=== PATIENT | female | born 1950 | race Hispanic/Latino ===

== ENCOUNTER 2018-02-21 08:48 | Day surgery (SDC) | payer MEDICARE, OTHER ==
[2018-02-21] MEDS ORDERED: ATROPINE 0.1% (CARDIAC) ONE (10:32)
[2018-02-21] MEDS ORDERED: ADRENALIN ONE (10:32)
[2018-02-21] MEDS ORDERED: NITROSTAT SL ONE (10:32)
[2018-02-21] MEDS ORDERED: XYLOCAINE CARDIAC IV ONE (10:32)
[2018-02-21] MEDS ORDERED: NACL 0.9% 500 ML 500 ML IV SCH (11:00)
--- NOTE | 2018-02-21 11:13 | Short Stay Summary ---
Short Stay Documentation Date of service: 02/21/18 - History H&P: obtained from office - Allergies and Medications Current Medications: Allergies clarithromycin [From Biaxin] Allergy (Verified 02/21/18 10:42) Hives, red in face dexamethasone Allergy (Verified 02/21/18 10:42) HIVES,RED IN FACE doxycycline Allergy (Verified 02/21/18 10:42) Hives, red in face hydromorphone HCl [From Dilaudid] Allergy (Verified 02/21/18 10:42) HIVES, RED IN FACE levofloxacin [From Levaquin] Allergy (Verified 02/21/18 10:42) Hives, RED IN FACE prednisone Allergy (Verified 02/21/18 10:42) Itching promethazine HCl [From Phenergan] Allergy (Verified 02/21/18 10:42) HIVES, RED IN FACE tramadol Allergy (Verified 02/21/18 10:42) Dizziness AMIODIPHINE BESYLATE Allergy (Uncoded 04/21/16 07:08) HIVES,RED IN FACE PRETASONE Allergy (Uncoded 04/21/16 07:08) Hives, RED IN FACE SODIUM PENATHOL Allergy (Uncoded 04/21/16 07:08) Hives, RED IN FACE Active Medications Sodium Chloride (Nacl 0.9% 500 Ml) 500 mls @ 50 mls/hr IV DIRECT AYAH - Physical exam General appearance: no acute distress Integumentary: no rash HEENT: Atraumatic Lungs: Clear to auscultation Breasts: deferred Heart: Regular rate Gastrointestinal: normal Female Genitourinary: deferred Rectal Exam: deferred Extremities: no ischemia Neurological: Normal gait - Brief post op/procedure progress note Date of procedure: 02/21/18 Pre-op diagnosis: Syncope Post-op diagnosis: same Procedure: TTT Anesthesia: none Findings: See report Surgeon: GARRY MONCADA Estimated blood loss: none Pathology: none Condition: stable - Hospital course Hospital course: Uneventful - Disposition Condition at discharge: Good Disposition: DC-01 TO HOME OR SELFCARE Short Stay Discharge Plan Activity: advance as tolerated Weight Bearing Status: Weight Bear as Tolerated Diet: low fat, low cholesterol, low salt Follow up with: JUAN ANTONIO VINCENT JR, MD [Primary Care Provider] - 7 Days
[2018-02-21 12:20] VITALS: BP 115/62
--- NOTE | 2018-02-21 13:52 | Procedure Note ---
TILT TABLE TEST INDICATION: Syncope. ORDERING PHYSICIAN: Maynor Cruz MD PROCEDURE PERFORMED: Tilt table test. DESCRIPTION OF PROCEDURE: After obtaining written consent, the patient was brought to the labor relations or personnel negotiator area. The patient was secured on the tilt table test. The blood pressure prior to tilting was 137/84 with a heart rate of 74, sinus rhythm. The patient was tilted to 85 degrees from horizontal. The blood pressure after tilting was 142/90 with a heart rate of 93 beats per minute. The patient was kept in the upright position for 10 minutes. At the end of the 10 minutes, her blood pressure was 143/93 with a heart rate of 100 beats per minute. The patient was then given 0.4 mg of sublingual nitroglycerin. Six minutes post-nitroglycerin administration. The patient started complaining of dizziness, sweatiness and nausea. Her heart rate started to decrease and she developed junctional bradycardia with a heart rate in the low to mid 50s. The patient did lose consciousness. The patient was tilted back to horizontal. The blood pressure after tilting was 88/66. The patient was given IV fluids, her blood pressure recovered eventually to 114/80 and her heart rate recovered to 85 beats per minute, sinus rhythm. IMPRESSION: This is a positive tilt table test with evidence of a significant cardioinhibitory response as well as a vasodepressor response to nitroglycerin. RECOMMENDATION: The patient will be recommended for behavioral changes and the initiation of a beta magaly. The patient will also be recommended to discontinuation of old diuretics. JOB# [id number] RITESH/STEPHANIE
== END 2018-02-21 12:20 | disposition home or self-care (01) ==
LOC: CATHLABREC 08:48
PROVIDERS: ATTEND Internal Medicine
DX: Z88.8 Allergy status to other drugs, medicaments and biological substances (principal); R55 Syncope and collapse; M19.90 Unspecified osteoarthritis, unspecified site; J45.909 Unspecified asthma, uncomplicated; K21.9 Gastro-esophageal reflux disease without esophagitis; I10 Essential (primary) hypertension; Z82.49 Family history of ischemic heart disease and other diseases of the circulatory system
CPT/HCPCS: 93005; 93010; 93660; J7040; J0171; J0461; J2001